=== PATIENT | female | born 1980 | race American Indian/Alaskan Native ===

== ENCOUNTER 2016-05-21 13:38 | Outpatient (CLI) | payer MEDICAID ==
[2016-05-21 14:14] LABS: Albumin 3.6 g/dL (3.9-5); Albumin/Globulin Ratio 0.9 %; BUN/Creatinine Ratio 30.9; Bilirubin,Total 0.2 mg/dL (0.1-1.2); Chloride 96.3 mmol/L (98-107); Magnesium 1.9 mg/dL (1.7-2.3); Phosphorous 4.1 mg/dL (2.5-4.5); Potassium 5.5 mmol/L (3.6-5.0); Total Protein 7.5 g/dL (6.3-8.2)
== END 2016-05-21 13:39 | disposition home or self-care (01) ==
LOC: LABHHL 13:38
PROVIDERS: ATTEND Family Medicine
DX: Z45.2 Encounter for adjustment and management of vascular access device (principal); E10.43 Type 1 diabetes mellitus with diabetic autonomic (poly)neuropathy; N30.00 Acute cystitis without hematuria; E46 Unspecified protein-calorie malnutrition
CPT/HCPCS: 36415; 80053; 83735; 84100; 84478

== ENCOUNTER 2016-07-23 10:38 | Outpatient (CLI) | payer MEDICAID ==
[2016-07-23 11:07] LABS: Alanine Aminotransferase 71 units/L (7-56); Albumin 3.6 g/dL (3.9-5); Alkaline Phosphatase 158 units/L (35-129); Anion Gap 21 mmol/L; Bilirubin,Total 0.2 mg/dL (0.1-1.2); Blood Urea Nitrogen 36 mg/dL (7-17); Calcium 8.9 mg/dL (8.4-10.2); Carbon Dioxide 22 mmol/L (22-30); Magnesium 1.9 mg/dL (1.7-2.3); Potassium 4.9 mmol/L (3.6-5.0); Sodium 131 mmol/L (137-145); Total Protein 7.1 g/dL (6.3-8.2); Triglycerides 86 mg/dL (2-149)
[2016-07-23 11:13] LABS: Glucose 738 mg/dL (65-100)
== END 2016-07-23 10:39 | disposition home or self-care (01) ==
LOC: LABHHL 10:38
PROVIDERS: ATTEND General Practice
DX: Z45.2 Encounter for adjustment and management of vascular access device (principal); I12.9 Hypertensive chronic kidney disease with stage 1 through stage 4 chronic kidney disease, or unspecified chronic kidney disease; N18.9 Chronic kidney disease, unspecified; N30.00 Acute cystitis without hematuria; E46 Unspecified protein-calorie malnutrition
CPT/HCPCS: 36415; 80053; 83735; 84100; 84478

== ENCOUNTER 2016-08-21 11:12 | Outpatient (CLI) | payer MEDICAID ==
[2016-08-21 11:37] LABS: Hemoglobin 7.2 gm/dl (10.1-14.3); Mean Corpuscular HGB Conc 34 % (30-34); Mean Corpuscular Hemoglobin 28 pg (28-32); Mean Corpuscular Volume 82 fl (79-97); Platelet Count 203 K/mm3 (140-440); Red Blood Count 2.56 M/mm3 (3.65-5.03); Red Cell Distribution Width 13.4 % (13.2-15.2); White Blood Count 11.6 K/mm3 (4.5-11.0)
[2016-08-21 11:55] LABS: Albumin 2.8 g/dL (3.9-5); Albumin/Globulin Ratio 0.7 %; BUN/Creatinine Ratio 25.71; Bilirubin,Total 0.3 mg/dL (0.1-1.2); Calcium 8.3 mg/dL (8.4-10.2); Chloride 92.9 mmol/L (98-107); Magnesium 1.9 mg/dL (1.7-2.3); Phosphorous 1.4 mg/dL (2.5-4.5); Total Protein 6.7 g/dL (6.3-8.2)
[2016-08-21 12:02] LABS: Potassium 2.4 mmol/L (3.6-5.0)
[2016-08-21 12:34] LABS: Anisocytosis Few; Basophils % (Manual) 0 % (0.0-1.8); Blastocytes % (Manual) 0 %; Eosinophils % (Manual) 0 % (0.0-4.3); Polychromasia Few
[2016-08-21 12:35] LABS: Diff Status Complete; Stomatocytes Few
== END 2016-08-21 11:13 | disposition home or self-care (01) ==
LOC: LABHHL 11:12
PROVIDERS: ATTEND General Practice
DX: Z45.2 Encounter for adjustment and management of vascular access device (principal); I12.9 Hypertensive chronic kidney disease with stage 1 through stage 4 chronic kidney disease, or unspecified chronic kidney disease; N18.9 Chronic kidney disease, unspecified; E46 Unspecified protein-calorie malnutrition; N30.00 Acute cystitis without hematuria
CPT/HCPCS: 36415; 80053; 83735; 84100; 84478; 85007; 85025

== ENCOUNTER 2020-01-05 06:24 | Day surgery (SDC) | payer MEDICARE ==
--- NOTE | 2020-01-03 12:30 | Anesthesia Consultation ---
Anesthesia Consult and Med Hx Date of service: 01/05/20 - Airway Anesthetic Teeth Evaluation: Chipped ROM Head & Neck: Adequate Mental/Hyoid Distance: Adequate Mallampati Class: Class III Intubation Access Assessment: Possibly Difficult (Pt has hx difficult intubation at [facility] [id number] and was on vent for several days postop) - Pre-Operative Health Status ASA Pre-Surgery Classification: ASA4 Proposed Anesthetic Plan: General (Block; GA if needed) Nerve Block: SC - Pulmonary Hx Smoking: No Hx Asthma: No COPD: No Hx Pneumonia: No Hx Sleep Apnea: No (SNORES) - Cardiovascular System Hx Hypertension: Yes Hx Heart Attack/AMI: No Hx Percutaneous Transluminal Coronary Angioplasty (PTCA): No Hx Pacemaker: No Hx Internal Defibrillator: No Hx Heart Murmur: No - Central Nervous System Hx Neuromuscular Disorder: Yes (Decreased activity from hip pain; uses walker) Hx Seizures: No Hx Back Pain: Yes (AND NECK. Peripheral neuropathy from DM) Hx Psychiatric Problems: No - Gastrointestinal Hx Gastroesophageal Reflux Disease: Yes (Diabetic gastroparesis. 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
[~2020-01-05 06:24] MED LIST: MIDAZOLAM 2 MG/2 ML INJ IV NR; SODIUM CHLORIDE 0.9% 1000 ML 1,000 ML IV SCH; ceFAZolin/Water 2 GM/20 ML 2 GM/20 ML SYRINGE IV NR; fentaNYL 100 MCG/2 ML INJ IV ONE
--- NOTE | 2020-01-05 07:20 | Anesthesia Day of Surgery ---
Anesthesia Day of Surgery - Day of Surgery Patient Examined: Yes Patient H&P Reviewed: Yes Patient is NPO: Yes Beta Blockers: Yes
[2020-01-05] MEDS ORDERED: BUPIVACAINE-EPINEPHRINE/PF 0.5%-1:200,000 (30 ML) VIAL INFILTRATI ONE (07:36)
[2020-01-05 07:41] LABS: Hematocrit 33.4 % (30.3-42.9); Hemoglobin 10.9 gm/dl (10.1-14.3); Mean Corpuscular HGB Conc 32 % (30-34); Mean Corpuscular Volume 92 fl (79-97); Red Blood Count 3.65 M/mm3 (3.65-5.03)
[2020-01-05 07:43] LABS: Platelet Count 94 K/mm3 (140-440); Red Cell Distribution Width 20.1 % (13.2-15.2)
[2020-01-05] MEDS ORDERED: ONDANSETRON 4 MG/2 ML INJ ONE (07:43)
[2020-01-05] MEDS ORDERED: LIDOCAINE MPF (2%) 20 MG/1 ML VIAL 5 ML ONE (07:43)
[2020-01-05] MEDS ORDERED: dexAMETHasone 20 MG/5 ML VIAL ONE (07:43)
[2020-01-05] MEDS ORDERED: HYDROmorphone 1 MG/1 ML INJ ONE (07:44)
[2020-01-05] MEDS ORDERED: propofoL 200 MG/20 ML VIAL IV ONE (07:44)
[2020-01-05] MEDS ORDERED: SODIUM CHLORIDE 0.9% 500 ML 500 ML ONE (07:59)
[2020-01-05] MEDS ORDERED: HEPARIN 10,000 UNITS/10 ML VIAL ONE (07:59)
[2020-01-05] MEDS ORDERED: rifAMPin 600 MG VIAL ONE (07:59)
[2020-01-05] MEDS ORDERED: BUPIVACAINE/PF (0.5%) 5 MG/1 ML 30 ML VIAL INFILTRATI ONE ×2 (07:59→09:59)
[2020-01-05] MEDS ORDERED: fentaNYL 100 MCG/2 ML INJ IV ONE (08:05)
[2020-01-05] MEDS ORDERED: fentaNYL 100 MCG/2 ML INJ ONE (08:09)
[2020-01-05] MEDS ORDERED: hydrALAZINE 20 MG/1 ML INJ ONE (08:52)
[2020-01-05] MEDS ORDERED: SODIUM CHLORIDE 0.9% 250ML 250 ML ONE (08:55)
[2020-01-05] MEDS ORDERED: SODIUM CHLORIDE 0.9% IRR 1,000 ML BOTTLE IR ONE (09:08)
[2020-01-05] MEDS ORDERED: HEPARIN 2,000 UNIT in SODIUM CHLORIDE 0.9% 500 ML 500 ML IR ONE (09:08)
[2020-01-05] MEDS ORDERED: rifAMPin 600 MG in SODIUM CHLORIDE 0.9% 50 ML IR ONE (09:13)
[2020-01-05] MEDS ORDERED: HEPARIN IR ONE (09:14)
[2020-01-05] MEDS ORDERED: SODIUM CHLORIDE 0.9% IR ONE (09:14)
--- NOTE | 2020-01-05 10:27 | Short Stay Summary ---
Short Stay Documentation Date of service: 01/05/20 Narrative H&P: See H&P - History H&P: obtained from office - Allergies and Medications Current Medications: Allergies INDERAL Adverse Reaction (Intermediate, Uncoded 12/31/19 16:04) Hives LEVOTHYROXIN-OK SYNTHYROID- LEVOTHYROXIN OK Adverse Reaction (Intermediate, Uncoded 12/31/19 16:03) Hives Home Medications Medication Instructions Recorded Confirmed Last Taken Type Cranberry Fruit Extract [Cranberry] 1 cap PO DAILY 12/31/19 12/31/19 Unknown History Gabapentin 200 mg PO DAILY 12/31/19 12/31/19 Unknown History Garlic 1 cap PO DAILY 12/31/19 12/31/19 Unknown History Insulin Glargine [Lantus VIAL] 4 units SUB-Q QHS 12/31/19 12/31/19 Unknown History Juniper Romo 1 cap PO DAILY 12/31/19 Unknown History Metoprolol 25 mg PO BID 12/31/19 12/31/19 Unknown History Multivit,Stress Formula/Zinc 80 mg PO DAILY 12/31/19 12/31/19 Unknown History [Stress Formula with Zinc Tab] Phenergan 25 mg PO PRN 12/31/19 12/31/19 Unknown History TPN Adult 1 bag IV DAILY 12/31/19 12/31/19 Unknown History Levothyroxine Sodium [Tirosint-Kerri] 125 mcg IV 2XW 01/03/20 01/03/20 Unknown History Pantoprazole [Protonix] 40 mg PO QDAY 01/03/20 01/03/20 Unknown History Active Medications Sodium Chloride (Nacl 0.9% 1000 Ml) 1,000 mls @ 42 mls/hr IV DIRECT SHEMAR Cefazolin Sodium (Ancef/Sterile Water 2 Gm/20 Ml) 2 gm in 20 mls @ 80 mls/hr IV PREOP NR; Protocol Stop: 01/05/20 23:59 Midazolam HCl (Versed) 2 mg IV PREOP NR Stop: 01/05/20 23:59 - Brief post op/procedure progress note Date of procedure: 01/05/20 Pre-op diagnosis: End-Stage Renal Disease Post-op diagnosis: same Procedure: Creation of Left Brachial Artery to Left Axillary Vein Arteriovenous Graft with 5 mm Bovine Artegraft Anesthesia: MAC, regional Surgeon: ROBE VASQUEZ Estimated blood loss: 50-100ml Pathology: none Condition: stable - Disposition Condition at discharge: Good Disposition: DC-01 TO HOME OR SELFCARE Short Stay Discharge Plan Activity: other (No heavy lifting with left arm) Wound: open to air, keep clean and dry, other (Okay to wash the wounds with soap and water but do not soak in water) Follow up with: ROBE VASQUEZ MD [Staff Physician] - 14 Days Prescriptions: HYDROcodone/APAP 7.5-325 [[place] 7.5/325] 1 each PO Q6HR PRN #30 tablet PRN Reason: Pain
--- NOTE | 2020-01-05 10:38 | Operative Report ---
Operative Report Operative Report: Date of procedure: 01/05/2020 Pre-operative diagnosis: End-Stage Renal Disease Post-operative diagnosis: Same Procedure(s): 1. Creation of Left Brachial Artery to Axillary Vein AV Graft with 5 mm Bovine Graft Artergraft Surgeon: Hong Hickman MD Show Design Supervisor: None Anesthesia: Regional/MAC EBL: Minimal Counts: Correct Complications: None Condition: Stable Findings: Successful Creation of Left Arm AV Graft Specimen: None Indication: The patient is a 39 year old female with a history of end-stage renal disease who is currently on hemodialysis through a permacath. She is in need of long- term dialysis access and did not have adequate vein for creation of an arteriovenous fistula so she requires an arteriovenous graft. She was given the risk, benefits, and alternative procedures and consented to the procedure. Description of Procedure: A regional block was performed in the preoperative area prior to the patient being transported to the operating room. Once the block was completed the patient was transported to the operating room and adequately sedated. Once she was sedated her left arm was prepped and draped in normal sterile fashion. A longitudinal incision was made on the medial aspect of the arm just proximal to the antecubital crease and carried down to the brachial artery using sharp dissection. The brachial artery was dissected out circumferentially both proximally and distally and controlled with vessel loops. A second incision was created in longitudinal fashion on the medial aspect of the arm just distal to the axillary crease and carried down to the axillary vein using sharp dissection. Axillary vein was dissected out circumferentially and controlled w ith a vessel loop. I then used a Maureen-Wick tunneler to tunnel from the brachial artery incision to the axillary vein incision and then put an 5 mm bovine through the tunnel. I infused with heparinized saline to ensure that it was not twisted or kinked. I put the brachial artery vessel loops on tension controlling the flow and then created an arteriotomy using an 11 blade and Ford scissors. I beveled the graft and created an end-to-side anastomosis using 6-0 Prolene running fashion. I clamped the graft just proximal to the anastomosis and then released the vessel loops restoring flow in the brachial artery. I placed quick clot in incision to achieve hemostasis. I cut the proximal end of the graft to the appropriate length and beveled the graft in preparation for a venous anastomosis. I controlled the axillary vein a Satinsky clamp and created a venotomy using an 11 blade and Ford scissors. I created an end to side anastomosis using a 6-0 Prolene in running fashion. Prior to completing the anastomosis I flushed the graft to ensure there was no thrombus and then completed the anastamosis. I released all clamps allowing flow into the AV graft which had an excellent thrill. I packed the wound with quick clot to achieve hemostasis. I anesthetized both wounds with 0.5% Marcaine and then closed both wounds in 2 layers using 3-0 Vicryl in running fashion in the deep dermal layer and 4-0 Monocryl in running fashion the subcuticular layer. I dressed both wounds with Dermabond. The patient tolerated the procedure well all sponge needle and instrument counts were correct the patient was taken to recovery in stable condition.
[2020-01-05] MEDS ORDERED: INSULIN LISPRO 100 UNIT/ML VIAL 3 mL SUB-Q ONE (10:50)
[2020-01-05] MEDS ORDERED: INSULIN LISPRO 100 UNIT/ML SUB-Q ONE (11:00)
[2020-01-05] MEDS ORDERED: INSULIN LISPRO 100 UNIT/ML VIAL 3 mL SUB-Q NR (11:00)
--- NOTE | 2020-01-05 11:00 | Post Anesthesia Evaluation ---
- Post Anesthesia Evaluation Patient Participated: Yes Airway Patent: Yes Stable Respiratory Function: Yes Nausea/Vomiting: No Temp > 96.8F: Yes Pain Manageable: Yes Adequeate Hydration: Yes Anesthesia Complications: No Block Receding Appropriately: Yes Patient on Ventilator: No
[2020-01-05 13:00] VITALS: BP 118/75
== END 2020-01-05 12:50 | disposition home or self-care (01) ==
LOC: OR 06:24
PROVIDERS: ATTEND Surgery Vascular Surgery
DX: I12.0 Hypertensive chronic kidney disease with stage 5 chronic kidney disease or end stage renal disease (principal); E11.22 Type 2 diabetes mellitus with diabetic chronic kidney disease; N18.6 End stage renal disease; J40 Bronchitis, not specified as acute or chronic; K21.9 Gastro-esophageal reflux disease without esophagitis; E03.9 Hypothyroidism, unspecified; D64.9 Anemia, unspecified; E11.42 Type 2 diabetes mellitus with diabetic polyneuropathy; Z79.4 Long term (current) use of insulin; Z98.41 Cataract extraction status, right eye; Z98.51 Tubal ligation status; Z87.440 Personal history of urinary (tract) infections; Z98.890 Other specified postprocedural states; Z88.8 Allergy status to other drugs, medicaments and biological substances; Z79.899 Other long term (current) drug therapy
CPT/HCPCS: 36415; 36830; 80048; 82962; 85027; C1768; J0360; J0690; J1100; J1170; J1644; J2250; J2405; J2704; J3010; J3490; J7030; J7040; 64450; J1815; J7050